=== PATIENT | female | born 1995 | race American Indian/Alaskan Native ===

== ENCOUNTER 2020-09-26 21:43 | Outpatient (CLI) | payer MEDICAID ==
[2020-09-26] MEDS ORDERED: ACETAMINOPHEN 500 MG TAB PO ONE (21:56)
[2020-09-26] MEDS ORDERED: LACTATED RINGERS 500 ML IV ONE (21:56)
[2020-09-26] MEDS ORDERED: TERBUTALINE 1 MG/1 ML INJ SUB-Q SCH (22:00)
[2020-09-26 22:56] VITALS: BP 123/77
--- NOTE | 2020-09-26 23:19 | Event Note ---
Date: 09/26/20 (Severe abdominal and back pain. Vaginal pressure.) Pt is 31.6 wks. Presented to triage with c/o intense vaginal pressure and severe back and abdominal pain. States that this pain and pressure started a few hours. Denies vaginal bleeding, LOF, and feeling ctxs. monitor strip category 1 with one contraction noted. There is positive movement. Cervical exam closed/thick/high. Some stool felt during vaginal exam. Pt states that she has some constipation. Discussed increasing fiber intake, and taking stool softener. Pt states that she drinks plenty of fluid. Of note, pt states that she was diagnosed with a UTI and has not picked up medication. Discussed importance of picking up medication because the vaginal pressure and abdominal pain she feels could be d/t UTI. Pt verbalized understanding and states she will pick up attendant medication when pharmacy opens. Will order FFN and PO fluids.
--- NOTE | 2020-09-27 01:52 | Event Note ---
Date: 09/27/20 (FFN negative) monitor strip continues to be category 1. No ctxs noted. FFN negative and pt with no complaints. 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
== END 2020-09-27 02:18 | disposition home or self-care (01) ==
LOC: TRG 21:43 → APU 21:46 → TRG 09-27 02:18
PROVIDERS: ATTEND Obstetrics & Gynecology
DX: Z34.93 Encounter for supervision of normal pregnancy, unspecified, third trimester (principal); Z3A.31 31 weeks gestation of pregnancy
CPT/HCPCS: 36415; 59025; 82731

== ENCOUNTER 2020-10-19 17:03 | Inpatient (IN) | payer MEDICAID ==
[2020-10-19] MEDS ORDERED: LACTATED RINGERS 500 ML IV ONE (17:37)
[2020-10-19] MEDS ORDERED: TERBUTALINE 1 MG/1 ML INJ SUB-Q SCH (18:00)
--- NOTE | 2020-10-19 18:06 | Event Note ---
Date: 10/19/20 (Painful contractions, vaginal pressure) Pt is @ 35 wks with c/o abdominal, back, and vaginal pain. Also states that she has vaginal pressure. monitor is category 1 with some irregular contractions noted. Cervical exam is /. Will start IV fluids and send FFN to the lab. Pt has refused Terbutaline at this time. Plan is to wait for FFN to result and then develop a plan of care at that time. Pt verbalized understanding.
[2020-10-19 19:00] LABS: Bacteria,Urine 1+ /HPF (Negative); Bilirubin,Urine NEG (Negative); Blood,Urine NEG (Negative); Color,Urine Yellow (Yellow); Hyaline Casts,Urine 1 /LPF; Mucus,Urine FEW /HPF; Protein,Urine <15 mg/dL mg/dL (Negative); Urobilinogen,Urine < 2.0 mg/dL (<2.0)
--- NOTE | 2020-10-19 19:50 | History and Physical Report ---
History of Present Illness Date of examination: 10/19/20 Date of admission: 10/19/2020 Chief complaint: I'm jaime and having vaginal pressure. History of present illness: Pt has been abdominal, back and vaginal pain. Also states that she has vaginal pressure. Cervical exam /1. FFN was positive during this triage visit. Consulted with Dr. Darden decision made to admit for magnesium infusion and steroids. EDC Confirmation: 11/22/2020 Gestational Age: 35.1 weeks on admission Past History : 1 Term Births: 0 Premature Births: 0 Living Children: 0 Para: 0 Mult. Births: 0 Prev : 0 Prev. attempt? 0 Aborta: 0 Elect. Ab: 0 Spont. Ab: 0 Ectopics: 0 Past Medical History: Reviewed history and no changes required: Negative Past Medical History Past Surgical History: Reviewed history and no changes required: negative Past Medical History Anesthesia Complications: negative Anemia: negative Autoimmune Disorder: negative Bleeding Disorder: negative Blood Transfusions: negative Breast Disease: negative Diabetes: negative Heart Disease: negative Hypertension: negative Hepatitis/Liver Disease: negative Kidney Disease/UTI: negative Neurologic/Epilepsy/Migraines: negative Phlebitis/Varicosities: negative Psychiatric: negative Pulmonary Disease/Asthma: negative Thyroid Disease: negative Hospitalizations: negative Surgery (Non-wedger and gluer): negative Abnormal PAP: negative Infertility: negative Uterine Anomaly: negative Uterine Surgery (not C/S): negative Other Gynecologic Problems: negative Family Hx: denies Infection History Hx of STD: chlamydia HIV Risk Eval: no Hepatitis B Risk Eval: low risk Personal hx. of genital herpes: no Partner hx. of genital herpes: no Rash, Viral, or Febrile illness since last LMP? no Varicella/Chicken Pox Status: Unknown TB Risk: no Genetic History Congenital Heart Defect: Mom: no Dad: no Matias Disease: Mom: no Dad: no Thalassemia Mom: no Dad: no Neural Tube Defect Mom: no Dad: no Down's Syndrome Mom: no Dad: no Song-Sachs Mom: no Dad: no Sickle Cell Disease/Trait Mom: no Dad: no Hemophilia Mom: no Dad: no Muscular Dystrophy Mom: no Dad: no Cystic Fibrosis Mom: no Dad: no Richie Chorea Mom: no Dad: no Mental Retardation Mom: no Dad: no Fragile X Mom: no Dad: no Other Genetic/Chromosomal Disorder Mom: no Dad: no Child w/other defect Mom: no Dad: no Enviromental Exposures Enviromental Exposures Reviewed Xray Exposure: no Medication, drug, or alcohol use since LMP: no Chemical/Other Exposure: no Exposure to Cat Liter: no Hx of Parvovirus (Fifth Disease): no Occupational Exposure to Children: none Active Medications (reviewed today): None Current Allergies (reviewed today): BENADRYL (Critical) Past History Past Medical History: no pertinent history Past Surgical History: no surgical history 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 .) Family/Genetic History: none Social history: no significant social history - Obstetrical History Expected Date of Delivery: 11/22/20 Actual Gestation: 35 Week(s) 2 Day(s) : 1 Para: 0 Hx # Term Pregnancies: 0 Number of Pregnancies: 0 Spontaneous Abortions: 0 Induced : 0 Number of Living Children: 0 Medications and Allergies Allergies Allergy/AdvReac Type Severity Reaction Status Date / Time diphenhydramine Allergy Severe Hives Verified 10/19/20 18:28 [From Benadryl] Active Meds: Active Medications Terbutaline Sulfate (Terbutaline 1 Mg/1 Ml Inj) 0.25 mg SUB-Q Q20MIN LATRELL Stop: 10/21/20 18:01 Review of Systems All systems: negative - Vital Signs Vital signs: Vital Signs Pulse BP 74 124/65 10/19/20 19:18 10/19/20 19:18 Temp Pulse Resp BP Pulse Ox 98.5 F 74 16 124/65 10/19/20 19:25 10/19/20 19:25 10/19/20 19:25 10/19/20 19:25 Discussed with patient the reason for admission. She had a positive FFN and her cervical exam is 50/-3. Category 1 monitor strip with some irregular contractions. Explained need for terb to help stop contractions, but she refused. Consulted with Dr. Darden. Will admit for magnesium infusion and steroids. Explained need for magnesium, Dooley, and steroids at this time d/t . Pt verbalized understanding and agreed to magnesium infusion, steroids and a Dooley. - Physical Exam Breasts: Positive: deferred Cardiovascular: Regular rate Lungs: Positive: Normal air movement Abdomen: Positive: normal appearance, soft Genitourinary (Female): Positive: normal external genitalia, normal perenium Vulva: both: normal Vagina: Positive: normal moisture Uterus: Positive: normal size Extremities: Positive: normal - Obstetrical FHR: auscultation normal, category 1 Uterine Contraction Monitor Mode: External Cervical Dilatation: 1 (Intact membranes) Cervical Effacement Percentage: 50 station: -1 Uterine Contraction Pattern: Irregular Uterine Tone Measurement Phase: Resting Uterine Contraction Intensity: Moderate Results Result Diagrams: 10/19/20 21:27 Abnormal lab results 10/19/20 Range/Units Unknown Urine WBC (Auto) 9.0 H (0.0-6.0) /HPF U Epithel Cells (Auto) 23.0 H (0-13.0) /HPF All other labs normal. GBS POSITIVE HBsAg Screen Negative Negative *1 RPR Non Reactive Non Reactive *2 Rubella Antibodies, IgG 5.21 index Immune >0.99 *3 Non-immune <0.90 Equivocal 0.90 - 0.99 Immune >0.99 ABO Grouping O *4 Rh Factor Positive *5 Please note: Prior records for this patient's ABO / Rh type are not available for additional verification. Antibody Screen Negative Negative *6 Tests: (2) HIV Ag/Ab with Reflex ([id number]) HIV Screen 4th Generation wRfx [A] Reactive Non Reactive *31 See additional algorithm testing elsewhere in this report. Tests: (3) HIV 1/2 Ab Differentiation ([id number]) ! HIV 1 Ab [A] Positive Negative *32 ! HIV 2 Ab Negative Negative *33 ! Interpretation: [A] HIV-1 Positive *34 Laboratory evidence consistent with established HIV-1 infection is present. Tests: (4) HCV Ab w/Rflx to Verification ([id number]) ! HCV Ab <0.1 s/co ratio 0.0-0.9 *35 Tests: (5) Comment: ([id number]) ! Comment: [facility] *36 Non reactive HCV antibody screen is consistent with no HCV infection, unless recent infection is suspected or other evidence exists to indicate HCV infection. Assessment and Plan A: 25 y.o. @ 35.1 wks, positive FFN. Cervical exam /-3. IUGR this , followed by [facility], HIV positive followed by ID. - Patient Problems (1) Intrauterine growth restriction (IUGR) affecting care of mother, third trimester, single gestation Current Visit: Yes Status: Acute Plan to address problem: Monitor well being through EFM. (2) HIV disease affecting in third trimester, antepartum Current Visit: Yes Status: Acute Plan to address problem: Being followed by ID. On Truvada and Raltegravir. Truvada here at [facility] is the following: Tenofovir 300mg and Emtriva 200mg. Pt will take these at 0600. Raltegravir 400mg is out of stock here at [facility]. Pt to take her own supply. She takes this medication at 11am and 11pm. Last viral load on 09/20 was 0. (3) 35 to 36 weeks gestation of Current Visit: Yes Status: Acute Plan to address problem: Admit to labor and delivery. Initiate IV. IV fluid bolus. Draw admission labs. Start Magnesium infusion Insert Dooley catheter. (4) GBS (group B streptococcus) infection Current Visit: Yes Status: Acute Plan to address problem: GBS Positive in urine on labs. Will need antibiotics in labor.
[2020-10-19] MEDS ORDERED: ONDANSETRON 4 MG/2 ML INJ IV PRN (19:54)
[2020-10-19] MEDS ORDERED: ALUM-MAG HYDROXIDE-SIMETHICONE 200-200-20MG/5ML ORAL LIQD 30 ML PO PRN (19:54)
[2020-10-19] MEDS ORDERED: MAGNESIUM HYDROXIDE (MOM) ORAL LIQD UDC PO PRN (19:54)
[2020-10-19] MEDS ORDERED: DOCUSATE SODIUM 100 MG CAP PO PRN (19:54)
[2020-10-19] MEDS ORDERED: MAGNESIUM SULFATE 40GM/1000ML 40 GM/1,000 ML BAG IV SCH (20:00)
[2020-10-19] MEDS ORDERED: MAGNESIUM SULFATE 4 GM/100 ML BAG IV ONE (20:00)
[2020-10-19] MEDS ORDERED: ACETAMINOPHEN 500 MG TAB PO PRN (20:03)
[2020-10-19] MEDS: LACTATED RINGERS 1,000 ML IV SCH (21:38)
[2020-10-19 21:42] LABS: Basophils % (Auto) 0.4 % (0.0-1.8); Eosinophils # (Auto) 0.1 K/mm3 (0.0-0.4); Eosinophils % (Auto) 0.9 % (0.0-4.3); Hematocrit 35.4 % (30.3-42.9); Hemoglobin 12.4 gm/dl (10.1-14.3); Lymphocytes # (Auto) 2.2 K/mm3 (1.2-5.4); Lymphocytes % (Auto) 31.8 % (13.4-35.0); Mean Corpuscular HGB Conc 35 % (30-34); Mean Corpuscular Volume 93 fl (79-97); Monocytes # (Auto) 0.5 K/mm3 (0.0-0.8); Monocytes % (Auto) 7.9 % (0.0-7.3); Platelet Count 174 K/mm3 (140-440); Red Blood Count 3.82 M/mm3 (3.65-5.03); Red Cell Distribution Width 12.9 % (13.2-15.2)
[2020-10-19] MEDS: BETAMET ACET/BETAMET NA PH 6 MG/ML INJ 5 ML MDV IM SCH (21:45)
[2020-10-19] MEDS ORDERED: RALTEGRAVIR POTASSIUM 400 MG TAB PO SCH (22:00)
[2020-10-20] MEDS ORDERED: DEXTROSE 5% IV ONE (04:30)
[2020-10-20] MEDS ORDERED: WATER IV ONE (04:30)
[2020-10-20] MEDS ORDERED: ZIDOVUDINE IV ONE (04:30)
[2020-10-20] MEDS ORDERED: AMPICILLIN/NS 2 GM/100 ML 2 GM/100 ML BAG IV ONE (04:33)
--- NOTE | 2020-10-20 04:37 | Event Note ---
Date: 10/20/20 (Pt is feeling vaginal pressure.) Received a call from RN that patient was feeling more vaginal pressure. Upon entering room, patient was laying on her side. Assessed cervix: /0. Discussed with patient cervical exam and offered her again terbutaline to help stop contractions. Pt once again refused. She also refused pain medication, stating that she has a high pain tolerance. Consulted with Dr. Darden. Will start antibiotics, AZT IV, and obtain a viral load.
[2020-10-20] MEDS: LACTATED RINGERS 1,000 ML IV SCH ×2 (05:06→17:48)
[2020-10-20] MEDS ORDERED: EMTRICITABINE 200 MG CAP PO SCH ×2 (06:00→11:00)
[2020-10-20] MEDS ORDERED: TENOFOVIR 300 MG TAB PO SCH ×2 (06:00)
[2020-10-20] MEDS ORDERED: EMTRICITABINE 200 MG, TENOFOVIR 300 MG PO SCH (06:00)
[2020-10-20] MEDS ORDERED: ZIDOVUDINE 400 MG in DEXTROSE 5% IN WATER 160 ML IV SCH (07:00)
[2020-10-20] MEDS: AMPICILLIN/NS 1 GM/50 ML 1 GM/50 ML BAG IV SCH ×3 (09:01→20:15)
--- NOTE | 2020-10-20 10:17 | Progress Note ---
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 Also have contacted ID to see if most recent labs can be faxed to us on labor and delivery. Dr. Rios does confirm that the last viral load were not detected and will have her nurse fax these results to [facility]. (4) Intrauterine growth restriction (IUGR) affecting care of mother, third trimester, single gestation Current Visit: Yes Status: Acute (5) labor in third trimester Current Visit: Yes Status: Acute Qualifiers: Fetus number: single or unspecified fetus Plan to address problem: -con't close obs -con't magnesium but if progresses will d/c Subjective - Subjective Date of service: 10/20/20 Principal diagnosis: IUP at 35.2 weeks with PTL 2) HIV(+) Interval history: Pt c/o having some leakage from around the cath when she had a BM earlier this at at 0400. She reports no further leaking. Pt examined and bag palpated on exam no obvious signs of SROM as perineum is dry. Cx: 4-5/60/-1to 0. I d/w that she seems to be having active labor despite the nagnesuium that is infusing and she is not feeling the contractions she is having. The toco was adjusted at no contractions were picking up on the monitor. I also d/w pt that her last viral load as per sign out to me this am was not detected and this means she is able to have a vaginal delivery but she does reserve the option for elective primary c/s. She expressed understanding. I d/w that if she progresses to active labor at 5cm or higher we will d/c the magnesium and prepare for a vaginal delivery. Pt expressed understanding and questions were addressed and answered. I stressed asking for assistance with going to the restroom especially if she feels she need to have a BM as this could indicate further progression of labor. ALIZA Aguayo at beside at time of exam and discussion. Pt expressed understanding and all questions were addressed and answered. Patient reports: loss of fluid, movement normal Objective - Vital Signs Vital Signs: Vital Signs - 12hr 10/19/20 10/19/20 10/19/20 22:14 22:17 22:22 Temperature Pulse Rate 85 77 88 Respiratory Rate Blood Pressure 117/56 123/61 O2 Sat by Pulse 99 100 Oximetry O2 Sat by Pulse Oximetry [ Bilateral] 10/19/20 10/19/20 10/19/20 22:24 22:27 22:29 Temperature Pulse Rate 84 83 80 Respiratory Rate Blood Pressure 120/58 123/61 O2 Sat by Pulse 100 Oximetry O2 Sat by Pulse Oximetry [ Bilateral] 10/19/20 10/19/20 10/19/20 22:32 22:37 22:42 Temperature Pulse Rate 76 78 73 Respiratory Rate Blood Pressure O2 Sat by Pulse 100 100 100 Oximetry O2 Sat by Pulse Oximetry [ Bilateral] 10/19/20 10/19/20 10/19/20 22:47 22:52 22:57 Temperature Pulse Rate 77 73 75 Respiratory Rate Blood Pressure O2 Sat by Pulse 100 99 98 Oximetry O2 Sat by Pulse Oximetry [ Bilateral] 10/19/20 10/19/20 10/19/20 23:00 23:02 23:07 Temperature Pulse Rate 83 72 71 Respiratory Rate Blood Pressure 127/70 O2 Sat by Pulse 100 98 Oximetry O2 Sat by Pulse Oximetry [ Bilateral] 10/19/20 10/19/20 10/19/20 23:12 23:17 23:22 Temperature Pulse Rate 75 84 78 Respiratory Rate Blood Pressure O2 Sat by Pulse 99 98 98 Oximetry O2 Sat by Pulse Oximetry [ Bilateral] 10/19/20 10/19/20 10/19/20 23:27 23:29 23:32 Temperature Pulse Rate 71 74 78 Respiratory Rate Blood Pressure 131/84 O2 Sat by Pulse 98 99 Oximetry O2 Sat by Pulse Oximetry [ Bilateral] 10/19/20 10/19/20 10/19/20 23:37 23:42 23:47 Temperature Pulse Rate 72 70 67 Respiratory Rate Blood Pressure O2 Sat by Pulse 100 99 98 Oximetry O2 Sat by Pulse Oximetry [ Bilateral] 10/19/20 10/19/20 10/20/20 23:52 23:57 00:00 Temperature Pulse Rate 73 71 79 Respiratory Rate Blood Pressure 121/65 O2 Sat by Pulse 97 98 Oximetry O2 Sat by Pulse Oximetry [ Bilateral] 10/20/20 10/20/20 10/20/20 00:02 00:07 00:12 Temperature Pulse Rate 67 70 72 Respiratory Rate Blood Pressure O2 Sat by Pulse 98 97 97 Oximetry O2 Sat by Pulse Oximetry [ Bilateral] 10/20/20 10/20/20 10/20/20 00:17 00:22 00:27 Temperature Pulse Rate 79 73 65 Respiratory Rate Blood Pressure O2 Sat by Pulse 98 100 99 Oximetry O2 Sat by Pulse Oximetry [ Bilateral] 10/20/20 10/20/20 10/20/20 00:29 00:32 00:37 Temperature Pulse Rate 70 71 69 Respiratory Rate Blood Pressure 124/75 O2 Sat by Pulse 99 98 Oximetry O2 Sat by Pulse Oximetry [ Bilateral] 10/20/20 10/20/20 10/20/20 00:42 00:47 00:52 Temperature Pulse Rate 69 67 65 Respiratory Rate Blood Pressure O2 Sat by Pulse 98 99 100 Oximetry O2 Sat by Pulse Oximetry [ Bilateral] 10/20/20 10/20/20 10/20/20 00:57 00:59 01:02 Temperature Pulse Rate 71 71 69 Respiratory Rate Blood Pressure 121/74 O2 Sat by Pulse 99 99 Oximetry O2 Sat by Pulse Oximetry [ Bilateral] 10/20/20 10/20/20 10/20/20 01:07 01:12 01:17 Temperature Pulse Rate 75 77 67 Respiratory Rate Blood Pressure O2 Sat by Pulse 99 99 99 Oximetry O2 Sat by Pulse Oximetry [ Bilateral] 10/20/20 10/20/20 10/20/20 01:22 01:27 01:31 Temperature Pulse Rate 73 76 69 Respiratory Rate Blood Pressure 118/65 O2 Sat by Pulse 98 98 Oximetry O2 Sat by Pulse Oximetry [ Bilateral] 10/20/20 10/20/20 10/20/20 01:32 01:37 01:42 Temperature Pulse Rate 76 76 77 Respiratory Rate Blood Pressure O2 Sat by Pulse 99 99 98 Oximetry O2 Sat by Pulse Oximetry [ Bilateral] 10/20/20 10/20/20 10/20/20 01:47 01:52 01:57 Temperature Pulse Rate 73 75 74 Respiratory Rate Blood Pressure O2 Sat by Pulse 99 99 99 Oximetry O2 Sat by Pulse Oximetry [ Bilateral] 10/20/20 10/20/20 10/20/20 01:59 02:02 02:07 Temperature Pulse Rate 74 73 70 Respiratory Rate Blood Pressure 120/75 O2 Sat by Pulse 99 99 Oximetry O2 Sat by Pulse Oximetry [ Bilateral] 10/20/20 10/20/20 10/20/20 02:12 02:17 02:22 Temperature Pulse Rate 75 78 76 Respiratory Rate Blood Pressure O2 Sat by Pulse 99 98 98 Oximetry O2 Sat by Pulse Oximetry [ Bilateral] 10/20/20 10/20/20 10/20/20 02:27 02:30 02:32 Temperature Pulse Rate 85 73 76 Respiratory Rate Blood Pressure 122/76 O2 Sat by Pulse 99 98 Oximetry O2 Sat by Pulse Oximetry [ Bilateral] 10/20/20 10/20/20 10/20/20 02:37 02:42 02:47 Temperature Pulse Rate 77 79 84 Respiratory Rate Blood Pressure O2 Sat by Pulse 98 98 98 Oximetry O2 Sat by Pulse Oximetry [ Bilateral] 10/20/20 10/20/20 10/20/20 02:50 02:52 02:57 Temperature Pulse Rate 77 77 77 Respiratory Rate Blood Pressure O2 Sat by Pulse 94 98 98 Oximetry O2 Sat by Pulse Oximetry [ Bilateral] 10/20/20 10/20/20 10/20/20 03:00 03:02 03:07 Temperature Pulse Rate 74 80 71 Respiratory Rate Blood Pressure 125/69 O2 Sat by Pulse 98 99 Oximetry O2 Sat by Pulse Oximetry [ Bilateral] 10/20/20 10/20/20 10/20/20 03:12 03:17 03:22 Temperature Pulse Rate 79 78 78 Respiratory Rate Blood Pressure O2 Sat by Pulse 98 98 99 Oximetry O2 Sat by Pulse Oximetry [ Bilateral] 10/20/20 10/20/20 10/20/20 03:27 03:30 03:32 Temperature Pulse Rate 78 75 75 Respiratory Rate Blood Pressure 117/70 O2 Sat by Pulse 98 99 Oximetry O2 Sat by Pulse Oximetry [ Bilateral] 10/20/20 10/20/20 10/20/20 03:37 03:42 03:47 Temperature Pulse Rate 77 74 75 Respiratory Rate Blood Pressure O2 Sat by Pulse 98 98 99 Oximetry O2 Sat by Pulse Oximetry [ Bilateral] 10/20/20 10/20/20 10/20/20 03:52 03:54 03:57 Temperature Pulse Rate 84 86 85 Respiratory Rate Blood Pressure O2 Sat by Pulse 98 92 99 Oximetry O2 Sat by Pulse Oximetry [ Bilateral] 10/20/20 10/20/20 10/20/20 04:00 04:02 04:07 Temperature Pulse Rate 86 82 80 Respiratory Rate Blood Pressure 135/95 O2 Sat by Pulse 95 97 Oximetry O2 Sat by Pulse Oximetry [ Bilateral] 10/20/20 10/20/20 10/20/20 04:12 04:13 04:17 Temperature Pulse Rate 78 96 H 80 Respiratory Rate Blood Pressure O2 Sat by Pulse 97 93 98 Oximetry O2 Sat by Pulse Oximetry [ Bilateral] 10/20/20 10/20/20 10/20/20 04:22 04:27 04:30 Temperature Pulse Rate 80 78 76 Respiratory Rate Blood Pressure 127/69 O2 Sat by Pulse 98 96 Oximetry O2 Sat by Pulse Oximetry [ Bilateral] 10/20/20 10/20/20 10/20/20 04:32 04:37 04:42 Temperature 98.2 F Pulse Rate 82 74 76 Respiratory Rate Blood Pressure O2 Sat by Pulse 99 97 97 Oximetry O2 Sat by Pulse Oximetry [ Bilateral] 10/20/20 10/20/20 10/20/20 04:47 04:52 04:54 Temperature Pulse Rate 77 71 88 Respiratory Rate Blood Pressure O2 Sat by Pulse 100 99 92 Oximetry O2 Sat by Pulse Oximetry [ Bilateral] 10/20/20 10/20/20 10/20/20 04:57 05:01 05:02 Temperature Pulse Rate 76 90 82 Respiratory Rate Blood Pressure 126/76 O2 Sat by Pulse 98 98 Oximetry O2 Sat by Pulse Oximetry [ Bilateral] 10/20/20 10/20/20 10/20/20 05:07 05:12 05:17 Temperature Pulse Rate 76 82 83 Respiratory Rate Blood Pressure O2 Sat by Pulse 100 99 100 Oximetry O2 Sat by Pulse Oximetry [ Bilateral] 10/20/20 10/20/20 10/20/20 05:22 05:27 05:29 Temperature Pulse Rate 86 83 86 Respiratory Rate Blood Pressure 121/72 O2 Sat by Pulse 99 100 Oximetry O2 Sat by Pulse Oximetry [ Bilateral] 10/20/20 10/20/20 10/20/20 05:32 05:37 05:42 Temperature Pulse Rate 73 85 82 Respiratory Rate Blood Pressure O2 Sat by Pulse 100 98 99 Oximetry O2 Sat by Pulse Oximetry [ Bilateral] 10/20/20 10/20/20 10/20/20 05:47 05:52 05:57 Temperature Pulse Rate 78 87 85 Respiratory Rate Blood Pressure O2 Sat by Pulse 100 97 74 L Oximetry O2 Sat by Pulse Oximetry [ Bilateral] 10/20/20 10/20/20 10/20/20 06:02 06:03 06:07 Temperature Pulse Rate 88 87 85 Respiratory Rate Blood Pressure O2 Sat by Pulse 96 90 97 Oximetry O2 Sat by Pulse Oximetry [ Bilateral] 10/20/20 10/20/20 10/20/20 06:12 06:17 06:22 Temperature Pulse Rate 75 76 101 H Respiratory Rate Blood Pressure O2 Sat by Pulse 99 98 96 Oximetry O2 Sat by Pulse Oximetry [ Bilateral] 10/20/20 10/20/20 10/20/20 06:27 06:30 06:32 Temperature Pulse Rate 81 75 78 Respiratory Rate Blood Pressure 115/64 O2 Sat by Pulse 97 96 Oximetry O2 Sat by Pulse Oximetry [ Bilateral] 10/20/20 10/20/20 10/20/20 06:37 06:41 06:42 Temperature Pulse Rate 85 86 73 Respiratory Rate Blood Pressure O2 Sat by Pulse 97 92 99 Oximetry O2 Sat by Pulse Oximetry [ Bilateral] 10/20/20 10/20/20 10/20/20 06:47 06:51 06:52 Temperature Pulse Rate 80 90 76 Respiratory Rate Blood Pressure O2 Sat by Pulse 98 91 99 Oximetry O2 Sat by Pulse Oximetry [ Bilateral] 10/20/20 10/20/20 10/20/20 06:57 06:59 07:02 Temperature Pulse Rate 82 83 81 Respiratory Rate Blood Pressure 120/73 O2 Sat by Pulse 99 98 Oximetry O2 Sat by Pulse Oximetry [ Bilateral] 10/20/20 10/20/20 10/20/20 07:07 07:12 07:17 Temperature Pulse Rate 105 H 101 H 77 Respiratory Rate Blood Pressure O2 Sat by Pulse 97 98 97 Oximetry O2 Sat by Pulse Oximetry [ Bilateral] 10/20/20 10/20/20 10/20/20 07:23 07:27 07:33 Temperature Pulse Rate 83 81 79 Respiratory Rate Blood Pressure O2 Sat by Pulse 94 97 97 Oximetry O2 Sat by Pulse Oximetry [ Bilateral] 10/20/20 10/20/20 10/20/20 07:38 07:43 07:48 Temperature Pulse Rate 83 88 79 Respiratory Rate Blood Pressure O2 Sat by Pulse 96 97 95 Oximetry O2 Sat by Pulse Oximetry [ Bilateral] 10/20/20 10/20/20 10/20/20 07:53 07:58 08:03 Temperature Pulse Rate 82 81 81 Respiratory Rate Blood Pressure O2 Sat by Pulse 97 97 97 Oximetry O2 Sat by Pulse Oximetry [ Bilateral] 10/20/20 10/20/20 10/20/20 08:05 08:08 08:09 Temperature 98.2 F Pulse Rate 78 88 Respiratory 18 Rate Blood Pressure 103/63 O2 Sat by Pulse 97 97 Oximetry O2 Sat by Pulse 97 Oximetry [ Bilateral] 10/20/20 10/20/20 10/20/20 08:12 08:18 08:23 Temperature Pulse Rate 87 72 73 Respiratory Rate Blood Pressure O2 Sat by Pulse 97 99 99 Oximetry O2 Sat by Pulse Oximetry [ Bilateral] 10/20/20 10/20/20 10/20/20 08:28 08:30 08:33 Temperature Pulse Rate 73 71 72 Respiratory Rate Blood Pressure 104/52 O2 Sat by Pulse 99 99 Oximetry O2 Sat by Pulse Oximetry [ Bilateral] 10/20/20 10/20/20 10/20/20 08:38 08:43 08:48 Temperature Pulse Rate 76 70 73 Respiratory Rate Blood Pressure O2 Sat by Pulse 99 99 98 Oximetry O2 Sat by Pulse Oximetry [ Bilateral] 10/20/20 10/20/20 10/20/20 08:53 08:58 09:00 Temperature Pulse Rate 72 75 71 Respiratory Rate Blood Pressure 107/55 O2 Sat by Pulse 99 99 Oximetry O2 Sat by Pulse Oximetry [ Bilateral] 10/20/20 10/20/20 10/20/20 09:03 09:08 09:13 Temperature Pulse Rate 71 76 74 Respiratory Rate Blood Pressure O2 Sat by Pulse 98 98 98 Oximetry O2 Sat by Pulse Oximetry [ Bilateral] 10/20/20 10/20/20 10/20/20 09:18 09:23 09:28 Temperature Pulse Rate 84 80 79 Respiratory Rate Blood Pressure O2 Sat by Pulse 97 96 97 Oximetry O2 Sat by Pulse Oximetry [ Bilateral] 10/20/20 10/20/20 10/20/20 09:33 09:38 09:43 Temperature Pulse Rate 79 75 82 Respiratory Rate Blood Pressure O2 Sat by Pulse 96 99 99 Oximetry O2 Sat by Pulse Oximetry [ Bilateral] 10/20/20 10/20/2021 09:48 09:53 09:58 Temperature Pulse Rate 94 H 89 93 H Respiratory Rate Blood Pressure O2 Sat by Pulse 100 99 99 Oximetry O2 Sat by Pulse Oximetry [ Bilateral] 10/20/20 10/20/20 10/20/20 10:00 10:01 10:03 Temperature Pulse Rate 105 H 96 H 94 H Respiratory Rate Blood Pressure 142/95 O2 Sat by Pulse 94 97 Oximetry O2 Sat by Pulse Oximetry [ Bilateral] 10/20/20 10:08 Temperature Pulse Rate 83 Respiratory Rate Blood Pressure O2 Sat by Pulse 98 Oximetry O2 Sat by Pulse Oximetry [ Bilateral] - Exam FHR: category 1 Uterine Contraction Monitor Mode: External Cervical Dilatation: 4.5 Cervical Effacement Percentage: 60 station: -1 Uterine Contraction Pattern: Irregular Uterine Tone Measurement Phase: Resting Extremities: normal - Labs Labs: Abnormal Labs 10/19/20 10/19/20 21:27 Unknown MCHC 35 H RDW 12.9 L Mathews % (Auto) 7.9 H Urine WBC (Auto) 9.0 H U Epithel Cells (Auto) 23.0 H Laboratory Results - last 24 hr 10/19/20 10/19/20 10/19/20 21:27 21:27 21:27 WBC 6.9 RBC 3.82 Hgb 12.4 Hct 35.4 MCV 93 MCH 32 MCHC 35 H RDW 12.9 L Plt Count 174 Lymph % (Auto) 31.8 Mathews % (Auto) 7.9 H Eos % (Auto) 0.9 Baso % (Auto) 0.4 Lymph # (Auto) 2.2 Mathews # (Auto) 0.5 Eos # (Auto) 0.1 Baso # (Auto) 0.0 Seg Neutrophils % 59.0 Seg Neutrophils # 4.0 Urine Color Urine Turbidity Urine pH Ur Specific [place] Urine Protein Urine Glucose (UA) Urine Ketones Urine Blood Urine Nitrite Urine Bilirubin Urine Urobilinogen Ur Leukocyte Esterase Urine WBC (Auto) Urine RBC (Auto) U Epithel Cells (Auto) Urine Bacteria (Auto) Hyaline Casts Urine Mucus Urine Yeast (Budding) Syphilis IgG Antibody Nonreactive Fibronectin Blood Type O POSITIVE Antibody Screen Negative 10/19/20 10/19/20 Unknown Unknown WBC RBC Hgb Hct MCV MCH MCHC RDW Plt Count Lymph % (Auto) Mathews % (Auto) Eos % (Auto) Baso % (Auto) Lymph # (Auto) Mathews # (Auto) Eos # (Auto) Baso # (Auto) Seg Neutrophils % Seg Neutrophils # Urine Color Yellow Urine Turbidity Cloudy Urine pH 7.0 Ur Specific [place] 1.014 Urine Protein <15 mg/dl Urine Glucose (UA) Neg Urine Ketones Neg Urine Blood Neg Urine Nitrite Neg Urine Bilirubin Neg Urine Urobilinogen < 2.0 Ur Leukocyte Esterase Mod Urine WBC (Auto) 9.0 H Urine RBC (Auto) 1.0 U Epithel Cells (Auto) 23.0 H Urine Bacteria (Auto) 1+ Hyaline Casts 1 Urine Mucus Few Urine Yeast (Budding) Few Syphilis IgG Antibody Fibronectin Positive Blood Type Antibody Screen
[2020-10-20] MEDS: PRENATAL VIT27-FE FUMARATE-FOLIC ACID VIT TAB PO SCH (10:57)
[2020-10-20] MEDS ORDERED: RALTEGRAVIR POTASSIUM 400 MG TAB PO SCH (11:00)
[2020-10-20] MEDS ORDERED: LIDOCAINE (2%) 20 MG/1 ML VIAL 20 ML MDV INFILTRATI ONE (17:16)
[2020-10-20] MEDS ORDERED: OXYTOCIN DRIP 30,000 MILLIUNITS/500 ML BAG IV ONE (17:16)
[2020-10-20] MEDS ORDERED: MINERAL OIL 30 ML ORAL LIQD ONE (17:16)
--- NOTE | 2020-10-20 17:29 | Progress Note ---
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 Report is on the chart. (4) Intrauterine growth restriction (IUGR) affecting care of mother, third trimester, single gestation Current Visit: Yes Status: Acute (5) labor in third trimester Current Visit: Yes Status: Acute Qualifiers: Fetus number: single or unspecified fetus Plan to address problem: -d/c magnesium now as BMZ is completed -anticipate -will not augment labor unless SROM Subjective - Subjective Date of service: 10/20/20 Principal diagnosis: IUP at 35.2 weeks with PTL 2) HIV(+) Interval history: Pt having discomfort and starting to feel contractions. Next does of bmz due at this time. I d/w giving the bmz and d/c of the magnesium and the rankin cath. She desires cath removed due to discomfort. She was noted to have panful contractions while provider was at the bedside. cx : 5/70-80/0. I d/w that she seems to be progressing in labor on the magnesium and when the magnesium is d/c she is likely going to deliver. She expressed understanding. All questions were addressed and answered. NICU aware of pt and to be present at time of delivery. Will con't AZT infusion that was started this am until delivery. Will resume pt normal meds po after delivery. Plan of care was also d/w pt mother via face time and her questions were also addressed and answered. Pt expressed that sister had given bith at another hospital and she is around the same gestation as she is and that the baby was in the NICU. I offered support and reassurance to the pt that myself and the staff would be here to help her with her delivery and assistance with the baby when that time comes. She is requesting pain medications at this time. I advised they have been order. ALIZA Aguayo at bedside and advised she would be giving the medications. Patient reports: movement normal, contractions Objective - Vital Signs Vital Signs: Vital Signs - 12hr 10/20/20 10/20/20 10/20/20 05:27 05:29 05:32 Temperature Pulse Rate 83 86 73 Respiratory Rate Blood Pressure 121/72 O2 Sat by Pulse 100 100 Oximetry O2 Sat by Pulse Oximetry [ Bilateral] 10/20/20 10/20/20 10/20/20 05:37 05:42 05:47 Temperature Pulse Rate 85 82 78 Respiratory Rate Blood Pressure O2 Sat by Pulse 98 99 100 Oximetry O2 Sat by Pulse Oximetry [ Bilateral] 10/20/20 10/20/20 10/20/20 05:52 05:57 06:02 Temperature Pulse Rate 87 85 88 Respiratory Rate Blood Pressure O2 Sat by Pulse 97 74 L 96 Oximetry O2 Sat by Pulse Oximetry [ Bilateral] 10/20/20 10/20/20 10/20/20 06:03 06:07 06:12 Temperature Pulse Rate 87 85 75 Respiratory Rate Blood Pressure O2 Sat by Pulse 90 97 99 Oximetry O2 Sat by Pulse Oximetry [ Bilateral] 10/20/20 10/20/20 10/20/20 06:17 06:22 06:27 Temperature Pulse Rate 76 101 H 81 Respiratory Rate Blood Pressure O2 Sat by Pulse 98 96 97 Oximetry O2 Sat by Pulse Oximetry [ Bilateral] 10/20/20 10/20/20 10/20/20 06:30 06:32 06:37 Temperature Pulse Rate 75 78 85 Respiratory Rate Blood Pressure 115/64 O2 Sat by Pulse 96 97 Oximetry O2 Sat by Pulse Oximetry [ Bilateral] 10/20/20 10/20/20 10/20/20 06:41 06:42 06:47 Temperature Pulse Rate 86 73 80 Respiratory Rate Blood Pressure O2 Sat by Pulse 92 99 98 Oximetry O2 Sat by Pulse Oximetry [ Bilateral] 10/20/20 10/20/20 10/20/20 06:51 06:52 06:57 Temperature Pulse Rate 90 76 82 Respiratory Rate Blood Pressure O2 Sat by Pulse 91 99 99 Oximetry O2 Sat by Pulse Oximetry [ Bilateral] 10/20/20 10/20/20 10/20/20 06:59 07:02 07:07 Temperature Pulse Rate 83 81 105 H Respiratory Rate Blood Pressure 120/73 O2 Sat by Pulse 98 97 Oximetry O2 Sat by Pulse Oximetry [ Bilateral] 10/20/20 10/20/20 10/20/20 07:12 07:17 07:23 Temperature Pulse Rate 101 H 77 83 Respiratory Rate Blood Pressure O2 Sat by Pulse 98 97 94 Oximetry O2 Sat by Pulse Oximetry [ Bilateral] 10/20/20 10/20/20 10/20/20 07:27 07:33 07:38 Temperature Pulse Rate 81 79 83 Respiratory Rate Blood Pressure O2 Sat by Pulse 97 97 96 Oximetry O2 Sat by Pulse Oximetry [ Bilateral] 10/20/20 10/20/20 10/20/20 07:43 07:48 07:53 Temperature Pulse Rate 88 79 82 Respiratory Rate Blood Pressure O2 Sat by Pulse 97 95 97 Oximetry O2 Sat by Pulse Oximetry [ Bilateral] 10/20/20 10/20/20 10/20/20 07:58 08:03 08:05 Temperature 98.2 F Pulse Rate 81 81 Respiratory 18 Rate Blood Pressure O2 Sat by Pulse 97 97 97 Oximetry O2 Sat by Pulse 97 Oximetry [ Bilateral] 10/20/20 10/20/20 10/20/20 08:08 08:09 08:12 Temperature Pulse Rate 78 88 87 Respiratory Rate Blood Pressure 103/63 O2 Sat by Pulse 97 97 Oximetry O2 Sat by Pulse Oximetry [ Bilateral] 10/20/20 10/20/20 10/20/20 08:18 08:23 08:28 Temperature Pulse Rate 72 73 73 Respiratory Rate Blood Pressure O2 Sat by Pulse 99 99 99 Oximetry O2 Sat by Pulse Oximetry [ Bilateral] 10/20/20 10/20/20 10/20/20 08:30 08:33 08:38 Temperature Pulse Rate 71 72 76 Respiratory Rate Blood Pressure 104/52 O2 Sat by Pulse 99 99 Oximetry O2 Sat by Pulse Oximetry [ Bilateral] 10/20/20 10/20/20 10/20/20 08:43 08:48 08:53 Temperature Pulse Rate 70 73 72 Respiratory Rate Blood Pressure O2 Sat by Pulse 99 98 99 Oximetry O2 Sat by Pulse Oximetry [ Bilateral] 10/20/20 10/20/20 10/20/20 08:58 09:00 09:03 Temperature Pulse Rate 75 71 71 Respiratory Rate Blood Pressure 107/55 O2 Sat by Pulse 99 98 Oximetry O2 Sat by Pulse Oximetry [ Bilateral] 10/20/20 10/20/20 10/20/20 09:08 09:13 09:18 Temperature Pulse Rate 76 74 84 Respiratory Rate Blood Pressure O2 Sat by Pulse 98 98 97 Oximetry O2 Sat by Pulse Oximetry [ Bilateral] 10/20/20 10/20/20 10/20/20 09:23 09:28 09:33 Temperature Pulse Rate 80 79 79 Respiratory Rate Blood Pressure O2 Sat by Pulse 96 97 96 Oximetry O2 Sat by Pulse Oximetry [ Bilateral] 10/20/20 10/20/20 10/20/20 09:38 09:43 09:48 Temperature Pulse Rate 75 82 94 H Respiratory Rate Blood Pressure O2 Sat by Pulse 99 99 100 Oximetry O2 Sat by Pulse Oximetry [ Bilateral] 10/20/20 10/20/20 10/20/20 09:53 09:58 10:00 Temperature Pulse Rate 89 93 H 105 H Respiratory Rate Blood Pressure 142/95 O2 Sat by Pulse 99 99 Oximetry O2 Sat by Pulse Oximetry [ Bilateral] 10/20/20 10/20/20 10/20/20 10:01 10:03 10:08 Temperature Pulse Rate 96 H 94 H 83 Respiratory Rate Blood Pressure O2 Sat by Pulse 94 97 98 Oximetry O2 Sat by Pulse Oximetry [ Bilateral] 10/20/20 10/20/20 10/20/20 10:13 10:18 10:23 Temperature Pulse Rate 89 89 102 H Respiratory Rate Blood Pressure O2 Sat by Pulse 99 99 99 Oximetry O2 Sat by Pulse Oximetry [ Bilateral] 10/20/20 10/20/20 10/20/20 10:28 10:30 10:33 Temperature Pulse Rate 87 86 91 H Respiratory Rate Blood Pressure 123/73 O2 Sat by Pulse 99 100 Oximetry O2 Sat by Pulse Oximetry [ Bilateral] 10/20/20 10/20/20 10/20/20 10:38 10:43 10:48 Temperature Pulse Rate 95 H 84 84 Respiratory Rate Blood Pressure O2 Sat by Pulse 99 100 99 Oximetry O2 Sat by Pulse Oximetry [ Bilateral] 10/20/20 10/20/20 10/20/20 10:53 10:58 11:00 Temperature Pulse Rate 83 95 H 86 Respiratory Rate Blood Pressure 125/78 O2 Sat by Pulse 100 98 Oximetry O2 Sat by Pulse Oximetry [ Bilateral] 10/20/20 10/20/20 10/20/20 11:03 11:08 11:13 Temperature Pulse Rate 78 73 81 Respiratory Rate Blood Pressure O2 Sat by Pulse 100 100 100 Oximetry O2 Sat by Pulse Oximetry [ Bilateral] 10/20/20 10/20/2010/20/21 11:18 11:23 11:28 Temperature Pulse Rate 87 85 82 Respiratory Rate Blood Pressure O2 Sat by Pulse 100 100 99 Oximetry O2 Sat by Pulse Oximetry [ Bilateral] 10/20/20 10/20/20 10/20/20 11:30 11:33 11:38 Temperature Pulse Rate 81 81 84 Respiratory Rate Blood Pressure 125/59 O2 Sat by Pulse 98 99 Oximetry O2 Sat by Pulse Oximetry [ Bilateral] 10/20/20 10/20/20 10/20/20 11:43 11:48 11:53 Temperature Pulse Rate 85 82 95 H Respiratory Rate Blood Pressure O2 Sat by Pulse 99 100 99 Oximetry O2 Sat by Pulse Oximetry [ Bilateral] 10/20/20 10/20/20 10/20/20 11:58 12:01 12:02 Temperature Pulse Rate 97 H 86 88 Respiratory Rate Blood Pressure 130/66 O2 Sat by Pulse 99 98 Oximetry O2 Sat by Pulse Oximetry [ Bilateral] 10/20/20 10/20/20 10/20/20 12:08 12:13 12:18 Temperature Pulse Rate 83 86 85 Respiratory Rate Blood Pressure O2 Sat by Pulse 99 97 100 Oximetry O2 Sat by Pulse Oximetry [ Bilateral] 10/20/20 10/20/20 10/20/20 12:23 12:28 12:30 Temperature Pulse Rate 85 93 H 86 Respiratory Rate Blood Pressure 122/64 O2 Sat by Pulse 99 99 Oximetry O2 Sat by Pulse Oximetry [ Bilateral] 10/20/20 10/20/20 10/20/20 12:33 12:38 12:39 Temperature Pulse Rate 88 82 88 Respiratory Rate Blood Pressure O2 Sat by Pulse 99 98 94 Oximetry O2 Sat by Pulse Oximetry [ Bilateral] 10/20/20 10/20/20 10/20/20 12:43 12:48 12:53 Temperature Pulse Rate 88 92 H 94 H Respiratory Rate Blood Pressure O2 Sat by Pulse 100 97 97 Oximetry O2 Sat by Pulse Oximetry [ Bilateral] 10/20/20 10/20/20 10/20/20 12:58 13:00 13:01 Temperature Pulse Rate 88 89 83 Respiratory Rate Blood Pressure 162/68 O2 Sat by Pulse 99 94 Oximetry O2 Sat by Pulse Oximetry [ Bilateral] 10/20/20 10/20/20 10/20/20 13:02 13:06 13:08 Temperature Pulse Rate 82 94 H 97 H Respiratory Rate Blood Pressure O2 Sat by Pulse 100 91 98 Oximetry O2 Sat by Pulse Oximetry [ Bilateral] 10/20/20 10/20/20 10/20/20 13:13 13:18 13:23 Temperature Pulse Rate 83 85 89 Respiratory Rate Blood Pressure O2 Sat by Pulse 97 100 100 Oximetry O2 Sat by Pulse Oximetry [ Bilateral] 10/20/20 10/20/20 10/20/20 13:28 13:29 13:33 Temperature Pulse Rate 83 77 82 Respiratory Rate Blood Pressure 111/60 O2 Sat by Pulse 99 99 Oximetry O2 Sat by Pulse Oximetry [ Bilateral] 10/20/20 10/20/20 10/20/20 13:38 13:40 13:43 Temperature Pulse Rate 82 92 H 77 Respiratory Rate Blood Pressure O2 Sat by Pulse 100 84 100 Oximetry O2 Sat by Pulse Oximetry [ Bilateral] 10/20/20 10/20/20 10/20/20 13:46 13:48 13:53 Temperature Pulse Rate 88 88 84 Respiratory Rate Blood Pressure O2 Sat by Pulse 91 98 99 Oximetry O2 Sat by Pulse Oximetry [ Bilateral] 10/20/20 10/20/20 10/20/20 13:58 13:59 14:03 Temperature Pulse Rate 84 86 87 Respiratory Rate Blood Pressure 130/85 O2 Sat by Pulse 100 98 Oximetry O2 Sat by Pulse Oximetry [ Bilateral] 10/20/20 10/20/20 10/20/20 14:08 14:13 14:18 Temperature Pulse Rate 85 83 82 Respiratory Rate Blood Pressure O2 Sat by Pulse 99 100 100 Oximetry O2 Sat by Pulse Oximetry [ Bilateral] 10/20/20 10/20/20 10/20/20 14:23 14:28 14:29 Temperature Pulse Rate 92 H 85 76 Respiratory Rate Blood Pressure 116/58 O2 Sat by Pulse 98 99 Oximetry O2 Sat by Pulse Oximetry [ Bilateral] 10/20/20 10/20/20 10/20/20 14:33 14:38 14:43 Temperature Pulse Rate 86 86 81 Respiratory Rate Blood Pressure O2 Sat by Pulse 100 100 98 Oximetry O2 Sat by Pulse Oximetry [ Bilateral] 10/20/20 10/20/20 10/20/20 14:47 14:48 14:53 Temperature Pulse Rate 102 H 83 84 Respiratory Rate Blood Pressure O2 Sat by Pulse 92 98 100 Oximetry O2 Sat by Pulse Oximetry [ Bilateral] 10/20/20 10/20/20 10/20/20 14:58 14:59 15:03 Temperature Pulse Rate 84 83 79 Respiratory Rate Blood Pressure 124/72 O2 Sat by Pulse 100 100 Oximetry O2 Sat by Pulse Oximetry [ Bilateral] 10/20/20 10/20/20 10/20/20 15:08 15:11 15:13 Temperature Pulse Rate 83 87 90 Respiratory Rate Blood Pressure O2 Sat by Pulse 100 92 100 Oximetry O2 Sat by Pulse Oximetry [ Bilateral] 10/20/20 10/20/20 10/20/20 15:18 15:23 15:28 Temperature Pulse Rate 82 82 84 Respiratory Rate Blood Pressure O2 Sat by Pulse 98 100 98 Oximetry O2 Sat by Pulse Oximetry [ Bilateral] 10/20/20 10/20/20 10/20/20 15:29 15:33 15:38 Temperature Pulse Rate 80 82 81 Respiratory Rate Blood Pressure 111/57 O2 Sat by Pulse 99 100 Oximetry O2 Sat by Pulse Oximetry [ Bilateral] 10/20/20 10/20/20 10/20/20 15:43 15:48 15:53 Temperature Pulse Rate 81 82 88 Respiratory Rate Blood Pressure O2 Sat by Pulse 100 100 97 Oximetry O2 Sat by Pulse Oximetry [ Bilateral] 10/20/20 10/20/20 10/20/20 15:58 16:03 16:06 Temperature Pulse Rate 89 91 H 99 H Respiratory Rate Blood Pressure O2 Sat by Pulse 100 99 94 Oximetry O2 Sat by Pulse Oximetry [ Bilateral] 10/20/20 10/20/20 10/20/20 16:08 16:13 16:18 Temperature Pulse Rate 82 87 86 Respiratory Rate Blood Pressure O2 Sat by Pulse 99 99 99 Oximetry O2 Sat by Pulse Oximetry [ Bilateral] 10/20/20 10/20/20 10/20/20 16:23 16:28 16:30 Temperature Pulse Rate 94 H 81 81 Respiratory Rate Blood Pressure 116/62 O2 Sat by Pulse 100 100 Oximetry O2 Sat by Pulse Oximetry [ Bilateral] 10/20/20 10/20/20 10/20/20 16:33 16:38 16:43 Temperature Pulse Rate 83 86 88 Respiratory Rate Blood Pressure O2 Sat by Pulse 100 100 100 Oximetry O2 Sat by Pulse Oximetry [ Bilateral] 07/31/21 07/31/21 07/31/21 16:48 16:53 16:54 Temperature Pulse Rate 90 87 47 L Respiratory Rate Blood Pressure O2 Sat by Pulse 97 99 91 Oximetry O2 Sat by Pulse Oximetry [ Bilateral] 10/20/20 10/20/20 10/20/20 16:58 17:03 17:08 Temperature Pulse Rate 88 98 H 83 Respiratory Rate Blood Pressure O2 Sat by Pulse 98 98 98 Oximetry O2 Sat by Pulse Oximetry [ Bilateral] 10/20/20 10/20/20 10/20/20 17:13 17:18 17:23 Temperature Pulse Rate 99 H 109 H 90 Respiratory Rate Blood Pressure O2 Sat by Pulse 99 100 100 Oximetry O2 Sat by Pulse Oximetry [ Bilateral] - Exam FHR: category 1 Cervical Dilatation: 5 Cervical Effacement Percentage: 75 station: 0 Uterine Contraction Pattern: Irregular Uterine Tone Measurement Phase: Resting Uterine Contraction Intensity: Moderate Extremities: normal - Labs Labs: Abnormal Labs 10/19/20 10/19/20 21:27 Unknown MCHC 35 H RDW 12.9 L Cassia % (Auto) 7.9 H Urine WBC (Auto) 9.0 H U Epithel Cells (Auto) 23.0 H Laboratory Results - last 24 hr 10/19/20 10/19/20 10/19/20 21:27 21:27 21:27 WBC 6.9 RBC 3.82 Hgb 12.4 Hct 35.4 MCV 93 MCH 32 MCHC 35 H RDW 12.9 L Plt Count 174 Lymph % (Auto) 31.8 Cassia % (Auto) 7.9 H Eos % (Auto) 0.9 Baso % (Auto) 0.4 Lymph # (Auto) 2.2 Cassia # (Auto) 0.5 Eos # (Auto) 0.1 Baso # (Auto) 0.0 Seg Neutrophils % 59.0 Seg Neutrophils # 4.0 Urine Color Urine Turbidity Urine pH Ur Specific Elmer Urine Protein Urine Glucose (UA) Urine Ketones Urine Blood Urine Nitrite Urine Bilirubin Urine Urobilinogen Ur Leukocyte Esterase Urine WBC (Auto) Urine RBC (Auto) U Epithel Cells (Auto) Urine Bacteria (Auto) Hyaline Casts Urine Mucus Urine Yeast (Budding) Syphilis IgG Antibody Nonreactive Coronavirus (PCR) Fibronectin Blood Type O POSITIVE Antibody Screen Negative 10/19/20 10/19/20 10/20/20 Unknown Unknown 09:14 WBC RBC Hgb Hct MCV MCH MCHC RDW Plt Count Lymph % (Auto) Cassia % (Auto) Eos % (Auto) Baso % (Auto) Lymph # (Auto) Cassia # (Auto) Eos # (Auto) Baso # (Auto) Seg Neutrophils % Seg Neutrophils # Urine Color Yellow Urine Turbidity Cloudy Urine pH 7.0 Ur Specific Elmer 1.014 Urine Protein <15 mg/dl Urine Glucose (UA) Neg Urine Ketones Neg Urine Blood Neg Urine Nitrite Neg Urine Bilirubin Neg Urine Urobilinogen < 2.0 Ur Leukocyte Esterase Mod Urine WBC (Auto) 9.0 H Urine RBC (Auto) 1.0 U Epithel Cells (Auto) 23.0 H Urine Bacteria (Auto) 1+ Hyaline Casts 1 Urine Mucus Few Urine Yeast (Budding) Few Syphilis IgG Antibody Coronavirus (PCR) Negative Fibronectin Positive Blood Type Antibody Screen
[2020-10-20] MEDS: BETAMET ACET/BETAMET NA PH 6 MG/ML INJ 5 ML MDV IM SCH (17:46)
[2020-10-21] MEDS: AMPICILLIN/NS 1 GM/50 ML 1 GM/50 ML BAG IV SCH (02:20)
[2020-10-21] MEDS ORDERED: fentaNYL 100 MCG/2 ML INJ IV ONE (03:16)
[2020-10-21] MEDS ORDERED: MINERAL OIL 30 ML ORAL LIQD ONE (06:28)
[2020-10-21] MEDS ORDERED: OXYTOCIN DRIP 30,000 MILLIUNITS/500 ML BAG IV ONE (06:28)
--- NOTE | 2020-10-21 07:14 | Procedure Note ---
OB Delivery Note - Delivery Date of Delivery: 10/21/20 Surgeon: CRISTIAN KRAUS - Vaginal Delivery presentation: vertex Delivery position: OA Intrapartum events: labor-<37 weeks, prolonged active phase, mult.variable deceleratio, other(please specify) (nuchal cord x1 easily reduced) Delivery induction: none Delivery monitor: external FHT, external uterine Route of delivery: Delivery placenta: spontaneous Delivery cord: nuchal cord (times on easily reduced) Episiotomy: none Delivery laceration: 1st degree (left periurethral hemostatic) Anesthesia: none, intravenous Delivery comments: Delivery as above. Ant shoulder delivered w/o difficulty. Nuchal cord noted and easily reduced. placed on maternal abdomen. Cord blood was collected. Placenta spontaneously delivered. Mother and stable in LDR. - Infant A at 1 minute: 8 at 5 minutes: 9 Infant Gender: Female (4lbs 8oz)
[2020-10-21] MEDS ORDERED: MAGNESIUM HYDROXIDE (MOM) ORAL LIQD UDC PO PRN (07:15)
[2020-10-21] MEDS ORDERED: diphenhydrAMINE 25 MG CAP PO PRN (07:15)
[2020-10-21] MEDS ORDERED: WITCH HAZEL/ GLYCERIN PAD TP PRN (07:15)
[2020-10-21] MEDS ORDERED: LANOLIN/ZINC/DIMETHICONE (LANSINOH) 7 GM TP PRN (07:15)
[2020-10-21] MEDS ORDERED: PROMETHAZINE 25 MG RECT SUPP PR PRN (07:15)
[2020-10-21] MEDS ORDERED: PROMETHAZINE 25 MG TAB PO PRN (07:15)
[2020-10-21] MEDS: EMTRICITABINE 200 MG CAP PO SCH (09:52)
[2020-10-21] MEDS: IBUPROFEN 600 MG TAB PO SCH ×3 (09:53→22:17)
[2020-10-21] MEDS ORDERED: RALTEGRAVIR POTASSIUM 400 MG TAB PO SCH (10:00)
[2020-10-21] MEDS: PRENATAL VIT27-FE FUMARATE-FOLIC ACID VIT TAB PO SCH (10:16)
[2020-10-21] MEDS: RALTEGRAVIR POTASSIUM 400 MG TAB PO SCH ×2 (12:34→22:18)
[2020-10-21] MEDS: TENOFOVIR 300 MG TAB PO SCH (12:34)
[2020-10-21 19:31] LABS: Hematocrit 34.3 % (30.3-42.9); Hemoglobin 11.5 gm/dl (10.1-14.3)
[2020-10-22] MEDS: IBUPROFEN 600 MG TAB PO SCH ×5 (04:46→23:50)
[2020-10-22] MEDS ORDERED: TETANUS,DIPH,PERTUSS(ACELL) VACCINE 0.5 ML SYRINGE IM ONE (07:17)
[2020-10-22] MEDS: EMTRICITABINE 200 MG CAP PO SCH (09:06)
[2020-10-22] MEDS: TENOFOVIR 300 MG TAB PO SCH (09:06)
--- NOTE | 2020-10-22 09:49 | Progress Note ---
Assessment and Plan Pt sitting in bed without complaints, family member and at bedside. Denies HERNÁNDEZ, vision changes, chest pain, and RUQ pain. VSS and H&H stable post delivery. Precautions reviewed. Pt reports undecided re: PP BC. Plan to discharge home tomorrow per pt desires. - Patient Problems (1) HIV disease affecting in third trimester, antepartum Current Visit: Yes Status: Acute (2) (spontaneous vaginal delivery) Current Visit: Yes Status: Acute Plan to address problem: continue pathway Subjective - Subjective Date of service: 10/22/20 Principal diagnosis: PPD#1, HIV(+) Patient reports: appetite normal, voiding normally, pain well controlled, ambulating normally, no dizzy ambulation, no appetite poor, no pain poorly controlled, no nauseated [place]: doing well Objective - Vital Signs Latest vital signs: Vital Signs Temp Pulse Resp BP BP Pulse Ox Pulse Ox 10/22/20 08:15 98.6 F 62 20 114/71 10/22/20 08:00 99 10/22/20 05:46 18 10/22/20 04:46 18 10/22/20 04:16 98.4 F 64 18 135/80 99 10/22/20 00:15 98.2 F 72 18 130/72 100 10/21/20 23:17 18 10/21/20 22:17 18 10/21/20 20:39 98.5 F 74 18 120/58 99 10/21/20 20:03 100 10/21/20 17:02 97.8 F 77 18 112/70 99 10/21/20 13:06 98.8 F 81 18 127/83 100 Intake and Output 10/21/20 10/22/20 10/22/20 23:59 07:59 15:59 Intake Total 240 240 320 Balance 240 240 320 Intake: Oral 240 240 320 Other: Total, Intake Amount 240 240 320 # Voids Void 1 1 1 - Exam Breasts: Present: normal Cardiovascular: Present: Regular rate Lungs: Present: Normal air movement Abdomen: Present: normal appearance, soft Vulva: both: normal Uterus: Present: normal, firm Extremities: Present: normal
[2020-10-22] MEDS: PRENATAL VIT27-FE FUMARATE-FOLIC ACID VIT TAB PO SCH (10:53)
[2020-10-22] MEDS: RALTEGRAVIR POTASSIUM 400 MG TAB PO SCH ×2 (14:01→23:51)
--- NOTE | 2020-10-23 05:29 | Discharge Summary ---
Providers - Providers Date of Admission: 10/19/20 19:55 Date of discharge: 10/23/20 (pt was in NICU visiting; saw pt there) Attending physician: KYRIE CHI Primary care physician: KYRIE CHI Hospitalization Reason for admission: active labor, IUP - Delivery: Episiotomy: none Laceration: none Incision: normal Other procedures: none complications: none Discharge diagnosis: delivery baby: female (remains NICU stable) Hospital course: uncomplicated vaginal delivery Pt visit NB in NICU No c/o voiced VSS FF below umb Lochia small Perineum intact H&H stable No s/sx of anemia Doing well s/p vag delivery P: d/c today with instructions Declines PP BC. F/U in 4 weeks Condition at discharge: Good Disposition: DC-01 TO HOME OR SELFCARE - Discharge Diagnoses (1) (spontaneous vaginal delivery) Status: Acute Comment: RTO 4 weeks PP Care Plan - Provider Discharge Summary Activity: routine, no sex for 6 weeks, no heavy lifting 4 weeks, no strenuous exercise Diet: routine Instructions: routine Additional instructions: [] Smoking cessation referral if applicable(refer to patient education folder for contact #) [] Refer to [facility]'s [facility] Booklet Call your doctor immediately for: * Fever > 100.5 * Heavy vaginal bleeding ( >1 pad per hour) * Severe persistent headache * Shortness of breath * Reddened, hot, painful area to leg or breast * Drainage or odor from incision. * Keep incision clean and dry at all times and follow doctor's instructions regarding bathing/showering - Follow up plan Follow up: KYRIE CHI MD [Primary Care Provider] - 11/21/20 (Congratulations! Please call [phone] to schedule your visit in 4 weeks. Motrin/ibuprofen for pain/cramping. Call with any concerns. )
[2020-10-23] MEDS: IBUPROFEN 600 MG TAB PO SCH (08:45)
[2020-10-23] MEDS: EMTRICITABINE 200 MG CAP PO SCH (10:40)
[2020-10-23] MEDS: TENOFOVIR 300 MG TAB PO SCH (10:42)
[2020-10-23] MEDS: PRENATAL VIT27-FE FUMARATE-FOLIC ACID VIT TAB PO SCH (10:44)
[2020-10-23] MEDS: RALTEGRAVIR POTASSIUM 400 MG TAB PO SCH (12:40)
[2020-10-23 18:46] VITALS: BP 126/66
[2020-10-23 19:44] LABS: HIV-1 RNA QN PCR <1.30 Log cps/mL; HIV-1 RNA QN PCR <20 Copies/mL
== END 2020-10-23 16:55 | disposition home or self-care (01) | DRG 774 ==
LOC: TRG 17:03 → APU 17:05 → TRG 19:54 → LD 19:55 → OB 10-21 08:25
PROVIDERS: ADMIT Obstetrics & Gynecology; ATTEND Obstetrics & Gynecology
PROC: 10E0XZZ Delivery of Products of Conception, External Approach (ICD-10-PCS; principal; 2020-10-21)
PROC: 0HQ9XZZ Repair Perineum Skin, External Approach (ICD-10-PCS; 2020-10-21)
PROC: 3E0234Z Introduction of Serum, Toxoid and Vaccine into Muscle, Percutaneous Approach (ICD-10-PCS; 2020-10-22)
DX: O69.81X0 Labor and delivery complicated by cord around neck, without compression, not applicable or unspecified (principal); O98.72 Human immunodeficiency virus [HIV] disease complicating childbirth; O76 Abnormality in fetal heart rate and rhythm complicating labor and delivery; O36.5930 Maternal care for other known or suspected poor fetal growth, third trimester, not applicable or unspecified; Z21 Asymptomatic human immunodeficiency virus [HIV] infection status; O60.14X0 Preterm labor third trimester with preterm delivery third trimester, not applicable or unspecified; O98.82 Other maternal infectious and parasitic diseases complicating childbirth; B95.1 Streptococcus, group B, as the cause of diseases classified elsewhere; Z20.822 Contact with and (suspected) exposure to COVID-19; O70.0 First degree perineal laceration during delivery; Z37.0 Single live birth; Z88.1 Allergy status to other antibiotic agents; Z3A.35 35 weeks gestation of pregnancy; Z23 Encounter for immunization
CPT/HCPCS: 36415; 59025; 81001; 82731; 85014; 85018; 85025; 86592; 86850; 86900; 86901; 87086; 87116; 87536; 88307; 96360; G0378; J0290; J0702; J3010; J3475; J3485; J7120; U0003